=== PATIENT | male | born 1990 | race Caucasian/White ===

== ENCOUNTER 2020-05-31 12:08 | Outpatient (REF) | payer OTHER, SELFPAY ==
[2020-06-04 12:20] LABS: SARS-CoV-2 RNA Undetected (Undetected); SARS-CoV-2 Specimen Source Nasal
== END 2020-05-31 12:28 ==
LOC: NCHCN 12:08
PROVIDERS: Visit Provider Family Medicine
DX: Z20.828 Contact with and (suspected) exposure to other viral communicable diseases (principal)
CPT/HCPCS: U0003

== ENCOUNTER 2021-02-13 15:51 | Outpatient (REF) | payer OTHER, SELFPAY ==
[2021-02-15 08:31] LABS: HBs Antibody, Quant >1000.0 mIU/mL (See Note); Hepatitis B Surface Ab Positive (See Note)
[2021-02-15 08:37] LABS: Hepatitis B Surface Ag Negative (Negative)
[2021-02-15 09:19] LABS: HIV-1/2 Ag & Ab Screen Negative (Negative)
[2021-02-15 09:46] LABS: Hepatitis C Ab w Rflx HCV PCR Negative (Negative)
[2021-02-15 11:04] LABS: Syphilis Serology (RPR) Negative (Negative)
[2021-02-15 16:18] LABS: Chlamydia Result Negative (Negative); GC Result Negative (Negative)
== END 2021-02-13 15:52 | disposition home or self-care (01) ==
LOC: LBN 15:51
PROVIDERS: Visit Provider Nurse Practitioner Family
DX: Z11.3 Encounter for screening for infections with a predominantly sexual mode of transmission (principal); Z11.4 Encounter for screening for human immunodeficiency virus [HIV]; Z11.59 Encounter for screening for other viral diseases
CPT/HCPCS: 86706; 86803; 87340; 87389; 87491; 87591; 86592

== ENCOUNTER 2024-08-26 07:01 | Emergency (ER) | payer BC, SELFPAY ==
--- NOTE | 2024-08-26 07:00 | DI.CT_ITS ---
Exam(s) CT ABDOMEN PELVIS W EXAM: CT ABDOMEN PELVIS W CLINICAL HISTORY: RLQ abd pain and groin pain. TECHNIQUE: Imaging Protocol: Axial computed tomography images with coronal and sagittal reformatted images were created and reviewed CONTRAST MATERIAL: Intravenous: Omnipaque-350 75cc Oral: None COMPARISON: No exams were available for comparison FINDINGS: VISUALIZED LUNG BASES: No nodules nor pleural effusions evident. ABDOMEN: There is no ascites. LIVER: There are no focal hepatic lesions evident. No dilated intrahepatic ducts. GALLBLADDER/BILIARY: No obvious gallbladder pathology. CBD is not dilated. PANCREAS: No evidence of pancreatic mass nor dilatation of the pancreatic duct. SPLEEN: Spleen is not enlarged. No obvious intrasplenic lesions. Splenic and portal veins are paten t. ADRENALS: There are no significant adrenal masses. KIDNEYS:No cysts evident. No solid renal masses. There is a 4 millimeter calculus in the lower righ t ureter at the right ureterovesical junction mild dilatation of the right ureter above this level. There are no calculi in the opposite-left side. No remaining calculi seen in the kidneys. ABDOMINAL AORTA: Abdominal aorta is not enlarged. LYMPH NODES:There is no retroperitoneal nor paraaortic adenopathy. ABDOMINAL WALL: No evidence of significant anterior abdominal wall nor inguinal hernia. GI: There is no evidence of bowel obstruction, free air, nor abscess. PELVIS: GI: No evidence of appendicitis.No evidence of sigmoid diverticulitis. LYMPH NODES: There is no intrapelvic nor inguinal adenopathy. REPRODUCTIVE: Prostate normal size URINARY BLADDER: Calculus at the right ureterovesical junction measuring 4 mm. OSSEOUS: No fractures and no significant osseous lesions. IMPRESSION: 1. There is a 4 millimeter calculus at the right ureterovesical junction with mild dilatation of the right ureter above this level. No remaining calculi in the kidneys. Report called by myself to ER physician 08/26/2024 8:30 a.m. RADIATION DOSE DELIVERED: 385.44mGy.cm Total DLP DATA REPOSITORY: All CT scans at this facility are submitted to the National Radiology Data Registry (NRDR) Dose Index Registry (DIR) with the [employer] (ACR). RADIATION OPTIMIZATION: All CT scans at this facility use at least one of these dose optimization te chniques: automated exposure control; mA and/or kV adjustment per patient size (includes targeted exa ms where dose is matched to clinical indication); or iterative reconstruction.
[2024-08-26 07:07] VITALS: BP 153/95; PULSE 73; RESP 18; TEMP 36.6; O2SAT 100
--- NOTE | 2024-08-26 07:15 | ED.GENADUL_ITS ---
Discharge Plan Disposition Patient Disposition: Home Condition: Stable Discharge Details Clinical Impression: Right kidney stone Primary Care Provider: Audrey Starr ED Provider: Kylie Suazo Home Meds and New Rx's Prescriptions: New tamsulosin [Flomax] 0.4 mg capsule 0.4 mg PO DAILY Qty: 20 0RF Morphine Ir, 4 Tabs/Btl [Msir, 4 Tabs/Btl] 15 mg PO DISPENSE Qty: 0 0RF Ondansetron Odt, 3 Tabs/Btl [Zofran Odt, 3 Tabs/Btl] 4 mg PO DISPENSE Qty: 0 0RF No Action epinephrine [EpiPen] 0.3 mg/0.3 mL auto-injector 0.3 mg IM ONCE PRN Rx Instructions: as a single dose; may repeat once Discharge Instructions Instructions: Kidney Stone, Adult ED Additional Instructions: You were seen in the emergency department today for evaluation of right groin and lower abdominal pain and were found to have a 4 mm stone at the junction of your ureter and your bladder. In our department you do full physical examination performed, had laboratory studies that were largely reassuring, though your creatinine, a measure of kidney function, is on the high side of normal. This should be rechecked by your primary care provider when you are well. Please increase your hydration, use Tylenol and ibuprofen for the main parts of your pain management, and use the Zofran and morphine for breakthrough pain. I have also prescribed you a medication called Flomax, which increases the flow of urine and can help pass the kidney stone. Please use caution moving from sitting to standing while on this medication as some people can experience dizziness. Reasons to go back to the emergency department include fever or chills, inability to eat or drink, or any other symptoms that cause you concern. Please follow-up with your primary care provider in the next few days to discuss this visit and any symptoms that change, worsen, or persist. Thank you for allowing us to be part of your care. Referrals: Gera Byrd MD [ [facility] STAFF PHYSICIAN] - Return if symptoms worsen (Please call if you have not passed your stone after 2 weeks of conservative management, after discussion with your primary care provider.) HPI General Mode of arrival: ambulatory . Date/Time Provider Initiated Documentation: 08/26/24 07:03 . Limitations to Documentation: no limitations . Information obtained by: patient, family and old records reviewed . HPI Narrative: HPI: This is a 34-year-old male patient, previously healthy, presenting for evaluation of right lower quadrant abdominal and groin pain. The patient states that he was woken from sleep at about 5:30 AM with sharp pain, that radiates from his right lower quadrant into his groin. He has had 2 episodes of nonbloody vomiting and has not been able to tolerate liquids. No medications taken prior to arrival, no personal surgical abdominal history. He does state that he had a history of dysuria and was told that he was at risk for formation of renal stones, has not noted any hematuria. Denies testicular pain, denies back pain. No fevers, was in his normal state of health upon going to bed last night. Exam: Gen: Awake and alert, appears uncomfortable HEENT: Non-icteric sclera Neck: Supple Lungs: No apparent respiratory distress, normal respiratory effort. CV: Appears well perfused, strong distal pulses Abdomen: Non-distended, soft, no worsening of pain to palpation, no rigidity, rebound, guarding MSK: Moves 4 extremities without apparent limitation in ROM Skin: Visualized skin without rashes, cyanosis. Neuro: Normal Gait, no obvious focal deficits or facial asymmetry. Speaks in full, clear sentences. Psych: Appropriate for situation. MDM: This is a 34-year-old male patient presenting for evaluation of right lower quadrant abdominal pain. Differential includes but is not limited to appendicitis, renal stone, UTI, considered testicular torsion though the patient is without testicular pain, considered other intra-abdominal pathologies including diverticulitis, gastroenteritis, cholecystitis, hepatitis. The patient is without significant risk factors for mesenteric ischemia or aortic pathology. We will provide the patient with medications to include Tylenol, Dilaudid, Zofran. Will obtain laboratory studies to include CBC, CMP, magnesium, lipase, and urinalysis. Will obtain a CT abdomen pelvis with contrast to better characterize any abnormalities. ED Course: I independently interpreted the laboratory studies, which show no significant leukocytosis, anemia, or thrombocytopenia. The chemistry panel is without evidence of electrolyte abnormality, severe kidney dysfunction, or liver injury, though the creatinine is slightly elevated to 1.4 without associated elevation in BNP. Magnesium borderline low at 1.6, patient counseled on dietary sources. Lipase is low, troponin negative. I did independently interpret the CT scan, and note a 4mm right sided UVJ stone. No other significant intra-abdominal abnormalities, urinalysis with hematuria but no evidence for infection. Patient does endorse a history of dysuria and was noted to have passage of calcium oxalate sediment, was told that he was at risk for stone production due to his body's metabolism of citrate. Patient had a complete resolution of his pain in the emergency department, was provided with a strainer, as well as a prescription for Flomax. We discussed conservative management with Tylenol and ibuprofen and I did provide him with a short course of take-home morphine and Zofran for breakthrough pain and nausea. At this time, the patient has had a full medical evaluation and is safe for discharge to home. They are hemodynamically stable, ambulatory, and tolerating PO. They are understanding of the follow-up plan and return precautions. They left our facility without incident. Kylie Suazo MD Related Data Home Medications ?Medication ?Instructions ?Recorded ?Confirmed epinephrine 0.3 mg/0.3 mL 0.3 mg IM ONCE PRN 01/21/24 01/21/24 injection, auto-injector (EpiPen) MORPHine IR, 4 tabs/btl [MSIR, 4 15 mg PO DISPENSE ##0 08/26/24 tabs/btl] Ondansetron ODT, 3 tabs/btl 4 mg PO DISPENSE ##0 08/26/24 [Zofran ODT, 3 tabs/btl] tamsulosin 0.4 mg capsule (Flomax) 0.4 mg PO DAILY #20 caps 08/26/24 Previous Rx's ?Medication ?Instructions ?Recorded MORPHine IR, 4 tabs/btl [MSIR, 4 15 mg PO DISPENSE ##0 08/26/24 tabs/btl] Ondansetron ODT, 3 tabs/btl 4 mg PO DISPENSE ##0 08/26/24 [Zofran ODT, 3 tabs/btl] tamsulosin 0.4 mg capsule (Flomax) 0.4 mg PO DAILY #20 caps 08/26/24 Allergies Allergy/AdvReac Type Severity Reaction Status Date / Time bees Allergy Swelling/Ed Uncoded 01/21/24 10:56 lea General Stated Complaint: Abd Prob ZENAIDA: 3 Course Vital Signs Vital signs: Vital Signs Temperature 36.6 C 08/26/24 07:07 Pulse 73 08/26/24 07:07 Respiratory Rate 18 08/26/24 07:07 Blood Pressure 153/95 H 08/26/24 07:07 Pulse Oximetry 100 08/26/24 07:07 Temperature 36.6 C 08/26/24 07:07 Temperature Source Temporal Artery Scan 08/26/24 07:07 Pulse 73 08/26/24 07:07 Respiratory Rate 18 08/26/24 07:07 Blood Pressure 153/95 H 08/26/24 07:07 Pulse Oximetry 100 08/26/24 07:07 Oxygen Delivery Method Room Air 08/26/24 07:07 Oxygen Flow Rate 0 08/26/24 07:07 Medical Decision Making Quality:SDOH Health Related Social Needs: No Data to Display PFSH All Active Problems (Updated 08/26/24 @ 08:46 by Kylie Suazo MD) Right kidney stone (Acute) Medical History (Updated 08/26/24 @ 08:46 by Kylie Suazo MD) Sensation of lump in throat Family history of prostate cancer Family history of malignant neoplasm of digestive organ Localized skin eruption Acute amebic dysentery Family History (Updated 12/31/23 @ 15:40 by Anny Wang) Mother Anxiety Cancer of thyroid Depression Hyperlipidemia Hypertension Father Hyperlipidemia Hypertension Uncle Prostate cancer Other Stomach cancer Social History (Updated 12/31/23 @ 15:34 by Anny Wang) Smoking/Tobacco Use Status: Never Smoking risk assessment performed?: Yes
[2024-08-26 07:22] LABS: Abs Immature Grans 0.03 10^3/uL (0.0-0.06); Absolute Basophil Count 0.05 10^3/uL (0.0-0.2); Absolute Eosinophil Count 0.16 10^3/uL (0.0-0.7); Absolute Lymphocyte Count 2.92 10^3/uL (1.2-3.4); Absolute Neutrophil Count 3.32 10^3/uL (1.2-6.7); Basophils % 0.7 %; Eosinophils % 2.3 %; HCT 46.2 % (40.0-50.0); HGB 16.4 g/dL (13.5-17.5); Immature Grans % 0.4 %; Lymphocytes % 41.8 %; MCH 31.2 pg (27.0-33.0); MCHC 35.5 % (32.0-36.0); MCV 88 fL (80-95); MPV 8.4 fL (8.0-11.0); Monocytes % 7.2 %; Neutrophils % 47.6 %; Platelet Count 312 10^3/uL (130-400); RBC 5.25 10^6/uL (4.36-5.78); RDW-SD 38.7 fL; WBC 6.98 10^3/uL (4.4-10.8)
[2024-08-26] MEDS: Ondansetron 4 MG/2 ML VIAL IVP (07:22)
[2024-08-26] MEDS: ACETAMINOPHEN 1,000 MG/100 ML BAG 400 MG IVPB (07:22)
[2024-08-26] MEDS: HYDROmorphone 2 MG/ML SYR 0.5 MG IVP (07:22)
[2024-08-26 07:38] LABS: ALT 46 U/L (16-63); AST 20 U/L (15-37); Albumin 4.1 g/dL (3.4-5.0); Alkaline Phosphatase 97 U/L (46-116); BUN 17 mg/dL (7-18); Bilirubin, Total 0.66 mg/dL (0.2-1.0); CREATININE 1.4 mg/dL (0.70-1.30); Calcium 9.4 mg/dL (8.5-10.1); Chloride 104 mmol/L (98-107); Estimated GFR 67.64 (mL/min/1.73m2); Glucose 181 mg/dL (74-106); Lipase 26 U/L (<78); Magnesium 1.6 mg/dL (1.8-2.4); Potassium 3.8 mmol/L (3.5-5.1); Sodium 141 mmol/L (136-145); Total Protein 7.5 g/dL (6.4-8.2); Troponin I 5 ng/L (<or=76)
[2024-08-26] MEDS: Omnipaque 350 MG/ML 100 ML BTL IJ (08:02)
[2024-08-26] MEDS: Normal Saline - Diluent 50 ML VIAL IJ (08:03)
--- NOTE | 2024-08-26 08:21 | DI.VRAD_ITS ---
PROCEDURE INFORMATION: Exam: CT Abdomen And Pelvis With Contrast Exam date and time: 08/26/2024 7:41 AM Age: 34 years old Clinical indication: Abdominal pain; Localized; Right lower quadrant (rlq); Rlq abd pain and groin pain TECHNIQUE: Imaging protocol: Computed tomography of the abdomen and pelvis with contrast. COMPARISON: No relevant prior studies available. FINDINGS: Liver: Mild hepatic steatosis. Gallbladder and biliary ducts: No radiodense gallbladder calculi seen. Pancreas: No CT evidence for acute pancreatitis. Spleen: No splenomegaly. Adrenal glands: No mass. Kidneys and ureters: Right hydroureter. 4 mm calculus at the right ureterovesical junction. Delayed right renal excretion as compared to the left. Stomach and bowel: No intestinal obstruction is appreciated. Appendix: Normal appendix. Intraperitoneal space: No free air. Vasculature: No abdominal aortic aneurysm. Lymph nodes: Nonspecific mesenteric lymph nodes. Urinary bladder: No acute findings. Reproductive: No acute findings. Bones/joints: No pertinent acute abnormality seen. Soft tissues: No pertinent acute abnormality seen. IMPRESSION: 1. Right ureterovesical junction calculus with evidence for obstruction as described above. 2. Additional findings as above. Dictated and Authenticated by: Nikky Colby MD. Orderin St. Rajesh Espinal MD
[2024-08-26 08:29] LABS: Bilirubin Negative (Negative); Blood Moderate (Negative); Clarity Clear (Clear); Glucose Negative (Negative); Ketones Negative (Negative); Leukocyte Esterase Negative (Negative); Nitrite Negative (Negative); Specific Gravity 1.015 (1.005-1.025); Urobilinogen 0.2 mg/dL (Up to 0.2); pH 7.5 (5-8)
[2024-08-26 08:42] LABS: Bacteria Negative HPF (Negative); Epithelial Cells Negative HPF (Negative); WBC 0-2 HPF (0-5)
[2024-08-26 08:43] LABS: C & S Indicated? No; Casts Negative LPF (Negative); Crystals Rare Calcium Oxalate HPF (Negative); Mucus Negative (Negative)
[2024-08-26 08:50] VITALS: BP 135/76; PULSE 76; RESP 16; O2SAT 99
[2024-08-26] MEDS: Ondansetron O.D.T. 4 MG TABEF, 3 TABS/BTL PO (08:57)
[2024-08-26] MEDS: MORPHine IR 15 MG TAB, 4 TABS/BTL PO (08:58)
--- OUTSIDE RECORDS SUMMARY | 2024-08-26 09:04 | XMS_ITS | Encounter Summary ---
Author Organization [facility] Address [address] [place] [address] Care Team Providers Care Clay Products Machine Operator Name Role Phone Unavailable Primary Care Provider Unavailabl e Encounter Details Date Type Department Care Team (Late st Contact Info) Description 02/14/2021 Lab Requisition [facility] Pathology & Laboratory Medicine - [facility] [address] [place] [address] Outr Resulting Lab, Provider Social History Tobacco Use Types Packs/Day Years Used Date Smoking Tobacco: Never Assessed Sex and Gender Information Value Date Recorded Sex Assigned at Not on file Legal Sex Male 12:48 EDT Gender Identity Not on file Sexual Orientation Not on file documented as of this encounter Plan of Treatment Not on file documented as of this encounter Procedures Procedure Name Priority Date/Time Associated Diagnosis Comments HEPATITIS C AB W REFLEX TO HCV RNA BY PCR Routine 02/13/2021 15:40 EDT HEPATITIS B SURFACE ANTIBODY Routine 02/13/2021 15:40 EDT HEPATITIS B SURFACE ANTIGEN Routine 02/13/2021 15:40 EDT documented in this encounter Results * HEPATITIS B SURFACE ANTIBODY (02/13/2021 15:40 EDT) Hep B Surface Ab, Quantitative >1,000.0 See Note mIU/mL 02/15/2021 8:26 EDT [facility] Comment: Reference Range for Hep B Surface Ab, Quant: Positive: >= 10.0 mIU/mL Negative: ??< 10.0 mIU/mL Patient is presumed to be immune to infection with Hepatitis B Virus. Hep B Surface Ab, Qualitative Positive See Note 02/15/2021 8:26 EDT [facility] Comment: Reference Range for Hep B Surface Ab, Qual: Unvaccinated: ??Negative Vaccinated: ??Positive Blood VENOUS BLOOD / Unknown 02/13/2021 15:40 EDT 02/14/2021 15:30 EDT us Provider Outr Resulting Lab CHEMISTRY & BLOOD GA S ORDERABLES Final Result [facility] [address] [place] [address] * HEPATITIS B SURFACE ANTIGEN (02/13/2021 15:40 EDT) Hep B Surface Ag Negative Negative 02/15/2021 8:32 EDT [facility] Blood VENOUS BLOOD / Unknown 02/13/2021 15:40 EDT 02/14/2021 15:30 EDT us Provider Outr Resulting Lab CHEMISTRY & BLOOD GA S ORDERABLES Final Result Performing Organization Address City/[facility]/ZIP Co de Phone Number [facility] [address] [place] [address] * HEPATITIS C AB W REFLEX TO HCV RNA BY PCR (02/13/2021 15:40 EDT) Hep C Antibody Negative Negative 02/15/2021 9:41 EDT [facility] Blood VENOUS BLOOD / Unknown 02/13/2021 15:40 EDT 02/14/2021 15:40 EDT us Provider Outr Resulting Lab CHEMISTRY & BLOOD GA S ORDERABLES Final Result [facility] [address] [place] [address] documented in this encounter Visit Diagnoses Not on filedocumented in this encounter
--- OUTSIDE RECORDS SUMMARY | 2024-08-26 09:04 | XMS_ITS | Referral Summary ---
Author Organization [facility] Address [address] [place] [address] Care Team Providers Care Director Operations Broadcast Name Role Phone Unavailable Primary Care Provider Unavailabl e Social History Tobacco Use Types Packs/Day Years Used Date Smoking Tobacco: Never Assessed Sex and Gender Information Value Date Recorded Sex Assigned at Not on file Legal Sex Male 12:48 EDT Gender Identity Not on file Sexual Orientation Not on file Plan of Treatment Not on file Procedures Procedure Name Priority Date/Time Associated Diagnosis Comments HEPATITIS C AB W REFLEX TO HCV RNA BY PCR Routine 02/13/2021 15:40 EDT from Last 3 Months or Most Recently Relevant to Health Maintenance Results * HEPATITIS C AB W REFLEX TO HCV RNA BY PCR (02/13/2021 15:40 EDT) Hep C Antibody Negative Negative 02/15/2021 9:41 EDT [facility] Blood VENOUS BLOOD / Unknown 02/13/2021 15:40 EDT 02/14/2021 15:40 EDT us Provider Outr Resulting Lab CHEMISTRY & BLOOD GA S ORDERABLES Final Result [facility] [address] [place] [address] from Last 3 Months or Most Recently Relevant to Health Maintenance
--- OUTSIDE RECORDS SUMMARY | 2024-08-26 09:04 | XMS_ITS | Encounter Summary ---
Author Organization [facility] Address [address] [place] [address] Care Team Providers Care Scientific Systems Analyst Name Role Phone Unavailable Primary Care Provider Unavailabl e Encounter Details Date Type Department Care Team (Late st Contact Info) Description 02/14/2021 Lab Requisition [facility] Pathology & Laboratory Medicine - [facility] [address] [place] [address] Outr Resulting Lab, Provider Social History Tobacco [...] Procedure Name Priority Date/Time Associated Diagnosis Comments SYPHILIS SEROLOGY Routine 02/13/2021 15: 40 EDT documented in this encounter Results * SYPHILIS SEROLOGY (02/13/2021 15:40 EDT) Syphilis Serology Negative Negative 02/15/2021 10:59 EDT [facility] Blood VENOUS BLOOD / Unknown 02/13/2021 15:40 EDT 02/14/2021 15:30 EDT us Provider Outr Resulting Lab IMMUNOLOGY AND SEROL OGY ORDERABLES Final Result [facility] [address] [place] [address] documented in this encounter Visit Diagnoses Not on filedocumented in this encounter
--- OUTSIDE RECORDS SUMMARY | 2024-08-26 09:04 | XMS_ITS | Clinical Summary ---
Author Organization [facility] Address [address] [place] [address] Care Team Providers Care Welder Explosion Name Role Phone Unavailable Primary Care Provider Unavailabl e Social History Tobacco Use Types Packs/Day Years Used Date Smoking Tobacco: Never Assessed Sex and Gender Information Value Date Recorded Sex Assigned at Not on file Legal Sex Male 12:48 EDT Gender Identity Not on file Sexual Orientation Not on file Plan of Treatment Health Maintenance Due Date Last Done Comments Hepatitis B Vaccine (1 of 3 - 19+ 3-dose series) 07/27 COVID-19 Vaccine ( season) 2024 Hepatitis C Screen Completed 02/13/2021 Procedures Procedure Name Priority Date/Time Associated Diagnosis Comments HEPATITIS C AB W REFLEX TO HCV RNA BY PCR Routine 02/13/2021 15:40 EDT from Last 3 Months or Most Recently Relevant to Health Maintenance Results * HEPATITIS C AB W REFLEX TO HCV RNA BY PCR (02/13/2021 15:40 EDT) Hep C Antibody Negative Negative 02/15/2021 9:41 EDT [facility] Blood VENOUS BLOOD / Unknown 02/13/2021 15:40 EDT 02/14/2021 15:40 EDT us Provider Outr Resulting Lab CHEMISTRY & BLOOD GA S ORDERABLES Final Result [facility] [address] [place] [address] from Last 3 Months or Most Recently Relevant to Health Maintenance
--- OUTSIDE RECORDS SUMMARY | 2024-08-26 09:04 | XMS_ITS | Encounter Summary ---
Author Organization [facility] Address [address] [place] [address] Care Team Providers Care Agricultural Labor Camp Manager Name Role Phone Unavailable Primary Care Provider Unavailabl e Encounter Details Date Type Department Care Team (Late st Contact Info) Description 02/14/2021 Lab Requisition [facility] Pathology & Laboratory Medicine - [facility] [address] [place] [address] Outr Resulting Lab, Provider Social History Tobacco [...] Procedure Name Priority Date/Time Associated Diagnosis Comments HIV 1/2 ANTIGEN AND ANTIBODY, 4TH GENERATION Routine 02/13/2021 15:40 EDT documented in this encounter Results * HIV 1/2 ANTIGEN AND ANTIBODY, 4TH GENERATION (02/13/2021 15:40 EDT) HIV 1 and 2 Antibody/p24 Antigen, 4th Generation Negative Negative 02/15/2021 9:[address] [facility] Comment: If acute HIV-1 infection is suspected in a high risk ??patient, submit plasma specimen for HIV-1 RNA quantitation test. Fourth Generation assay performed on the Siemens Centaur. Blood VENOUS BLOOD / Unknown 02/13/2021 15:40 EDT 02/14/2021 15:30 EDT us Provider Outr Resulting Lab IMMUNOLOGY AND SEROL OGY ORDERABLES Final Result [facility] [address] [place] [address] documented in this encounter Visit Diagnoses Not on filedocumented in this encounter
--- OUTSIDE RECORDS SUMMARY | 2024-08-26 09:04 | XMS_ITS | Encounter Summary ---
Author Organization [facility] Address [address] [place] [address] Care Team Providers Care Casing Trimmer Name Role Phone Unavailable Primary Care Provider Unavailabl e Encounter Details Date Type Department Care Team (Late st Contact Info) Description 02/14/2021 Lab Requisition [facility] Pathology & Laboratory Medicine - [facility] [address] [place] [address] Outr Resulting Lab, Provider Social History Tobacco [...] Procedure Name Priority Date/Time Associated Diagnosis Comments CHLAMYDIA/N. GONORRHOEAE AMPLIFIED NUCLEIC ACID Routine 02/13/2021 15:40 EDT documented in this encounter Results * CHLAMYDIA/N. GONORRHOEAE AMPLIFIED RNA (02/13/2021 15:40 EDT) Neisseria gonorrhoeae Result Negative Negative 02/15/2021 16:12 EDT [facility] Chlamydia trachomatis Result Negative Negative 02/15/2021 16:12 EDT [facility] Urine URINE / Unknown 02/13/2021 1 5:40 EDT 02/14/2021 16:05 EDT us Provider Outr Resulting Lab MICROBIOLOGY - GENER AL ORDERABLES Final Result [facility] [address] [place] [address] documented in this encounter Visit Diagnoses Not on filedocumented in this encounter
== END 2024-08-26 09:04 | disposition home or self-care (01) ==
LOC: ER 09:03
PROVIDERS: Emergency Provider Emergency Medicine; PCP Nurse Practitioner Family
DX: N20.0 Calculus of kidney (principal)
CPT/HCPCS: 80053; 83690; 96374; 96375; 99285; 74177; 81003; 81015; 83735; 84484; 85025; 99284; J0131; J1171; J2405; J3490